=== PATIENT | female | born 1980 | race Caucasian/White ===

== ENCOUNTER 2021-02-26 22:42 | Emergency (ER) | payer OTHER ==
[2021-02-27 01:49] LABS: EOSINOPHIL 1.6 % (0-5); HCT 40.6 % (37.0-47.0); HGB 13.6 g/dl (12.5-16.0); LYMPHOCYTE 29.9 % (15-48); MCH 32.8 pg (25.0-31.0); MCHC 33.5 g/dL (32.0-36.0); MCV 97.8 fL (78.0-100.0); MONOCYTE 7.6 % (0-12); MPV 11.6 fL (6.0-9.5); NEUTROPHIL 59.6 % (41-80); NRBC 0; PLT 277 K/uL (150-400); RBC 4.15 M/uL (4.20-5.40); RDW 12.8 % (11.5-14.0); WBC 12.8 K/uL (4.0-10.5)
[2021-02-27 02:04] LABS: BILIRUBIN NEGATIVE (NEGATIVE); BILIRUBIN - TOTAL 0.2 mg/dL (0.2-1.0); BLOOD NEGATIVE Ery/uL (NEGATIVE); BUN/CREAT RATIO (CALC) 12.5 RATIO; CLARITY CLEAR (CLEAR); COLOR YELLOW (YELLOW); CREATININE 0.88 mg/dL (0.51-0.95); GLUCOSE (U) NORMAL (NORMAL); LEUKOCYTES NEGATIVE Leu/uL (NEGATIVE); NITRITE NEGATIVE (NEGATIVE); POTASSIUM 3.6 mmol/L (3.5-5.1); PROTEIN NEGATIVE (NEGATIVE); UROBILINOGEN 0.2 mg/dL (0.2-1.0)
[2021-02-27] MEDS ORDERED: ONDANSETRON ODT4 MG SL (04:09)
[2021-02-27] MEDS ORDERED: NORCO 5-325 TA1 EACH PO (04:09)
[2021-02-27] MEDS ORDERED: FLOMAX0.4 MG PO (04:09)
== END 2021-02-27 04:24 | disposition home or self-care (01) ==
LOC: FER 22:42
PROVIDERS: Emergency Medicine Emergency Medical Services
DX: N20.1 Calculus of ureter (principal); F17.210 Nicotine dependence, cigarettes, uncomplicated
CPT/HCPCS: 36415; 80053; 81003; 85025; 87088; J1885; J7030; Q9967

== ENCOUNTER 2022-05-25 17:42 | Emergency (ER) | payer OTHER ==
[~2022-05-25 17:42] MED LIST: FLOMAX0.4 MG PO; NORCO 5-325 TA1 EACH PO; ONDANSETRON ODT4 MG SL
[2022-05-25 18:25] LABS: BILIRUBIN NEGATIVE (NEGATIVE); BLOOD NEGATIVE Ery/uL (NEGATIVE); CLARITY CLEAR (CLEAR); COLOR YELLOW (YELLOW); GLUCOSE (U) NORMAL (NORMAL); LEUKOCYTES NEGATIVE Leu/uL (NEGATIVE); NITRITE NEGATIVE (NEGATIVE); PROTEIN NEGATIVE (NEGATIVE); SPECIFIC GRAVITY >=1.030 (1.001-1.030); UROBILINOGEN 0.2 mg/dL (0.2-1.0)
[2022-05-25 18:41] LABS: BASOPHIL 0.8 % (0-2); EOSINOPHIL 1.5 % (0-5); HCT 41.5 % (37.0-47.0); HGB 13.6 g/dl (12.5-16.0); LYMPHOCYTE 25.8 % (15-48); MCH 31.4 pg (25.0-31.0); MCHC 32.8 g/dL (32.0-36.0); MCV 95.8 fL (78.0-100.0); MONOCYTE 7.2 % (0-12); MPV 10.7 fL (6.0-9.5); NEUTROPHIL 64.5 % (41-80); NRBC 0; PLT 275 K/uL (150-400); RBC 4.33 M/uL (4.20-5.40); RDW 13.1 % (11.5-14.0); WBC 10.1 K/uL (4.0-10.5)
[2022-05-25 18:52] LABS: ALBUMIN 3.9 g/dL (3.4-5.0); BILIRUBIN - TOTAL 0.2 mg/dL (0.2-1.0); BUN/CREAT RATIO (CALC) 12.4 RATIO; CREATININE 0.89 mg/dL (0.51-0.95); GLOBULIN (CALCULATION) 2.6 g/dL; POTASSIUM 3.8 mmol/L (3.5-5.1); TOTAL PROTEIN 6.5 g/dL (6.4-8.2)
== END 2022-05-25 19:32 | disposition home or self-care (01) ==
LOC: FER 17:42
PROVIDERS: Physician Assistant
DX: R10.31 Right lower quadrant pain (principal); F17.210 Nicotine dependence, cigarettes, uncomplicated
CPT/HCPCS: 36415; 80053; 81003; 85025; J1885; J7030